=== PATIENT | female | born 1930 | race Caucasian/White ===

== ENCOUNTER 2016-12-24 08:06 | Outpatient (CLI) | payer MEDICARE, OTHER ==
[2016-12-24] MEDS ORDERED: IOPAMIDOL-300 100 ML VIAL IVP ONE ×2 (09:46)
[2016-12-24] MEDS ORDERED: IOPAMIDOL-300 50 ML VIAL PO ONE (09:46)
== END 2016-12-24 08:07 | disposition home or self-care (01) ==
DX: R10.30 Lower abdominal pain, unspecified (principal); D64.9 Anemia, unspecified
CPT/HCPCS: 74177; Q9967

== ENCOUNTER 2017-03-07 13:30 | Outpatient (CLI) | payer MEDICARE, OTHER | END 2017-03-07 13:31 | disposition home or self-care (01) | DX: R01.1 Cardiac murmur, unspecified (principal); I08.2 Rheumatic disorders of both aortic and tricuspid valves ==

== ENCOUNTER 2017-12-25 08:34 | Outpatient (CLI) | payer MEDICARE, OTHER ==
--- NOTE | 2017-12-25 10:16 | XRAY Report ---
DATE OF SERVICE: 12/25/2017 TWO VIEW CHEST: 12/25/2017 CLINICAL INDICATION: Shortness of air, former smoker. COMPARISON: 03/02/2013. FINDINGS: Frontal and lateral views of the chest demonstrate a normal cardiac silhouette. The lungs are hyperinflated, suggestive of COPD. No focal consolidation, effusion, or pneumothorax is present. IMPRESSION: HYPERINFLATION, SUGGESTIVE OF COPD. NO EVIDENCE OF ACUTE CARDIOPULMONARY DISEASE. TD: 12/25/2017 11:15
== END 2017-12-25 08:35 | disposition home or self-care (01) ==
LOC: DI 08:34
PROVIDERS: ATTEND Physician Assistant
DX: R06.02 Shortness of breath (principal); Z87.891 Personal history of nicotine dependence
CPT/HCPCS: 71046

== ENCOUNTER 2018-08-28 08:12 | Outpatient (CLI) | payer MEDICARE, OTHER | END 2018-08-28 08:13 | disposition home or self-care (01) | LOC: DI 08:12 | PROVIDERS: ATTEND Physician Assistant | DX: I08.2 Rheumatic disorders of both aortic and tricuspid valves (principal); I10 Essential (primary) hypertension; I48.91 Unspecified atrial fibrillation | CPT/HCPCS: 93306 ==

== ENCOUNTER 2019-03-02 12:03 | Outpatient (CLI) | payer MEDICARE, OTHER ==
[2019-03-02 18:25] LABS: % IRON SATURATION 18 % (20-50); IRON 56 ug/dL (28-170); TOTAL IRON BINDING CAPACITY 311 ug/dL (250-450); TRANSFERRIN 222 mg/dL (192-382)
[2019-03-02 19:17] LABS: FOLATE > 49.60 ng/mL (5.90 - >24.8)
== END 2019-03-02 12:04 | disposition home or self-care (01) ==
LOC: LAB.F 12:03
PROVIDERS: ATTEND Physician Assistant
DX: K14.6 Glossodynia (principal); D50.9 Iron deficiency anemia, unspecified
CPT/HCPCS: 36415; 81599; 82607; 82746; 83540; 84466; 84630

== ENCOUNTER 2019-08-12 10:04 | Outpatient (CLI) | payer MEDICARE, OTHER | END 2019-08-12 10:05 | disposition home or self-care (01) | LOC: DI 10:04 | PROVIDERS: ATTEND Physician Assistant | DX: I35.0 Nonrheumatic aortic (valve) stenosis (principal); I51.7 Cardiomegaly | CPT/HCPCS: 93306 ==

== ENCOUNTER 2019-10-07 09:35 | Outpatient (CLI) | payer MEDICARE, OTHER ==
--- NOTE | 2019-10-07 15:02 | XRAY Report ---
Reason: UNSPECIFIED INJURY OF FACE,UNSPECIFIED INJ THORAX Procedure Date: 10/07/2019 Accession Number: [id number] / [id number] Procedure: XR - Facial Bones Complete CPT Code: Final Report FULL RESULT: EXAM: FACIAL BONES RADIOGRAPHY EXAM DATE: 10/07/2019 10:24 AM. CLINICAL HISTORY: Unspecified injury of face. COMPARISON: None. TECHNIQUE: 3 views. FINDINGS: Bones: Normal. No fractures or bone lesions. Temporomandibular Joints: Normal. Sinuses: Normal. No opacities or fluid levels. Other: Normal. No soft tissue swelling. IMPRESSION: No acute fracture is detected. [facility]
--- NOTE | 2019-10-07 15:03 | XRAY Report ---
Reason: UNSPECIFIED INJURY OF FACE,UNSPECIFIED INJ THORAX Procedure Date: 10/07/2019 Accession Number: [id number] / [id number] Procedure: XR - Ribs w/PA Chest LT CPT Code: Final Report FULL RESULT: EXAM: LEFT RIB RADIOGRAPHY EXAM DATE: 10/07/2019 10:27 AM. CLINICAL HISTORY: Unspecified injury of face, unspecified injury of thorax. COMPARISON: CHEST 2 VIEW 12/25/2017 8:40 AM. TECHNIQUE: 1 view of the chest and 2 views of the ribs. FINDINGS: Bones: Normal. No fracture or bone lesion. Lungs: No focal opacities. No pneumothorax. No pleural effusions. Mediastinum: Heart and mediastinal contours are unremarkable. Other: None. IMPRESSION: No displaced rib fracture is identified. [facility]
== END 2019-10-07 09:36 | disposition home or self-care (01) ==
LOC: DI 09:35
PROVIDERS: ATTEND Nurse Practitioner Family
DX: S00.83XA Contusion of other part of head, initial encounter (principal); S29.9XXA Unspecified injury of thorax, initial encounter
CPT/HCPCS: 70150

== ENCOUNTER 2019-12-11 08:03 | Outpatient (CLI) | payer MEDICARE, OTHER | END 2019-12-11 08:04 | disposition home or self-care (01) | LOC: DI 08:03 | PROVIDERS: ATTEND Internal Medicine Cardiovascular Disease | DX: I35.0 Nonrheumatic aortic (valve) stenosis (principal); I51.7 Cardiomegaly; R55 Syncope and collapse | CPT/HCPCS: 93306 ==

== ENCOUNTER 2019-12-30 08:00 | Outpatient (CLI) | payer MEDICARE, OTHER ==
[2019-12-30 17:37] LABS: BASOPHILS % (AUTO) 0.5 %; EOSINOPHILS # (AUTO) 0.1 10^3/uL (0.0-0.7); EOSINOPHILS % (AUTO) 1.4 %; HGB - HEMOGLOBIN 11.3 g/dL (12.0-16.0); LYMPHOCYTES # (AUTO) 1.9 10^3/uL (1.5-3.5); LYMPHOCYTES % (AUTO) 28.9 %; MEAN CORPUSCULAR HEMOGLOBIN 31.1 pg (27.0-31.0); MEAN CORPUSCULAR HGB CONC 32.1 g/dL (32.0-36.0); MEAN PLATELET VOLUME 9.7 fL (7.9-10.8); MONOCYTES # (AUTO) 0.7 10^3/uL (0.0-1.0); MONOCYTES % (AUTO) 10.1 %; NEUTROPHILS # (AUTO) 3.8 10^3/uL (1.5-6.6); NEUTROPHILS % (AUTO) 58.8 %; PLT - PLATELET COUNT 260 10^3/uL (130-450); RED BLOOD COUNT 3.63 10^6/uL (4.20-5.40); RED CELL DISTRIBUTION WIDTH 12.1 % (12.0-15.0); WHITE BLOOD COUNT 6.4 x10^3/uL (4.8-10.8)
[2019-12-30 18:12] LABS: ALBUMIN 4.5 g/dL (3.2-5.5); ALBUMIN/GLOBULIN RATIO 1.6 (1.0-2.2); BILIRUBIN,TOTAL 0.7 mg/dL (0.2-1.0); CALCIUM 9.2 mg/dL (8.5-10.3); CREATININE 1.5 mg/dL (0.4-1.0); TOTAL PROTEIN 7.4 g/dL (6.7-8.2)
== END 2019-12-30 23:59 | disposition home or self-care (01) ==
LOC: LAB.S 08:00
PROVIDERS: ATTEND Nurse Practitioner Family
DX: D50.9 Iron deficiency anemia, unspecified (principal); R53.83 Other fatigue
CPT/HCPCS: 36415; 80053; 82728; 83540; 84466; 85025